=== PATIENT | female | born 1975 | race Caucasian/White ===

== ENCOUNTER 2018-02-14 08:36 | Emergency (ER) | payer BC, OTHER ==
[2018-02-14] MEDS ORDERED: ZOLP-1 PO (08:43)
[2018-02-14] MEDS ORDERED: DESO1TAB41 PO (08:43)
--- NOTE | 2018-02-14 08:46 | ER Report ---
History and Physical Time Seen By MD: 08:45 Hx. of Stated Complaint: PT PRESENTS WITH LOW BACK PAIN FOR ABOUT 30 MIN. EARLIER NOTED UTI SYMPTOMS HPI/ROS CHIEF COMPLAINT: right lower back pain HISTORY OF PRESENT ILLNESS: This is a 42 year old female. She had sudden onset of pain in the right lower back this morning, about 30 minutes ago. Was driving at the time. Severe pain that was not aggravated or relieved by anything. Has felt like maybe getting a urinary tract infection with some symptoms of urinary frequency, but no dysuria. No diarrhea or constipation, but felt like she needed to go more often this morning and during the night. Had vomiting this morning along with the pain. Regular periods; she is on control, last period about 2 weeks ago. Currently, still with some background discomfort, but no longer with the severe pain she did have. REVIEW OF SYSTEMS: Constitutional: As above. Cardiovascular: No chest pain. Respiratory: No shortness of breath. Gastrointestinal: No pain in the abdomen. Genitourinary: As above. Musculoskeletal: No other pain. Allergies: Coded Allergies: Sulfa (Sulfonamide Antibiotics) (Verified Allergy, Intermediate, RASH, 02/14) Home Meds Active Scripts Ondansetron (ZOFRAN ODT) 4 Mg Tab.rapdis, 4 MG PO Q6H Y for NAUSEA/VOMITING, # 20 TAB.SEGUNDO 0 Refills Prov:AVA POWERS MD 02/14/18 Amoxicillin (AMOXICILLIN) 500 Mg Capsule, 1 CAP PO Q8H, #15 CAPSULE 0 Refills Prov:AVA POWERS MD 02/14/18 Reported Medications Desogestrel-Ethinyl Estradiol (RECLIPSEN) 1 Each Tablet, 1 EACH PO 02/14/18 Zolpidem Tartrate (AMBIEN) 5 Mg Tablet, 1 TAB PO QHS, TAB 02/14/18 Reviewed Nurses Notes: Yes Constitutional Vital Sign - Last 24 Hours 02/14/18 02/14/18 02/14/18 02/14/18 08:40 08:45 09:00 09:06 Temp 97.5 Pulse 51 57 Resp 20 B/P (MAP) 111/79 111/79 (90) 109/80 (90) Pulse Ox 98 97 O2 Delivery Room Air 02/14/18 02/14/18 02/14/18 02/14/18 09:30 09:36 09:51 10:00 Pulse 58 B/P (MAP) 101/59 (73) 105/67 (80) 103/65 (78) Pulse Ox 95 02/14/18 02/14/18 02/14/18 02/14/18 10:06 10:15 10:30 10:37 Pulse 58 B/P (MAP) 103/70 (81) 112/67 (82) 107/63 (78) Intake and Output 02/14/18 02/14/18 02/15/18 14:59 22:59 06:59 Intake Total 900 ml Balance 900 ml Physical Exam General Appearance: The patient is alert. No acute distress. Eyes: Pupils are equal, round. No pallor, injection or icterus. ENT: Mucous membranes are moist Respiratory: Lungs are clear to auscultation. Cardiovascular: Regular rate and rhythm. No murmurs, gallops or rubs. Normal capillary refill. Gastrointestinal: Abdomen is soft and non tender. Nondistended. Normal active bowel sounds. No costovertebral angle tenderness with percussion. Neurological: Alert and oriented x3. Skin: Warm and dry. No rashes. Musculoskeletal: No pain with palpation of the back. No tenderness in palpation of the thoracic and lumbar spine. DIFFERENTIAL DIAGNOSIS: After history and physical exam, differential diagnosis was considered for flank pain including but not limited to musculoskeletal causes, kidney stone, pyelonephritis, reproductive related issues and intra- abdominal causes such as diverticulitis and appendicitis. Medical Decision Making Data Points Result Diagram: 02/14/18 0851 02/14/18 0851 Laboratory Hematology Test 02/14/18 08:39 02/14/18 08:51 Urine Color Yellow Urine Clarity Slightly-cloudy Urine pH 5.0 pH (4.8-9.5) Urine Specific [place] 1.020 Urine Protein Negative mg/dL (NEGATIVE) Urine Glucose (UA) Negative mg/dL (NEGATIVE) Urine Ketones Negative mg/dL (NEGATIVE) Urine Blood Large (NEGATIVE) Urine Nitrite Negative (NEGATIVE) Urine Bilirubin Negative (NEGATIVE) Urine Urobilinogen Negative mg/dL (0.2-1.9) Urine Leukocyte Esterase Negative (NEGATIVE) Urine RBC 206 /HPF (0-2/HPF) Urine WBC 1 /HPF (0-5/HPF) Urine Squamous Epithelial Cells Many /LPF (</=FEW) Urine Renal Epithelial Cells Few /LPF (NONE-FEW) Urine Bacteria Few /HPF (NONE-FEW) Urine Mucus Few /HPF (NONE-FEW) Red Blood Count 4.58 M/uL (4.17-5.56) Mean Corpuscular Volume 87.8 fL (80.0-96.0) Mean Corpuscular Hemoglobin 30.2 pg (26.0-33.0) Mean Corpuscular Hemoglobin Concent 34.4 g/dL (32.0-36.0) Red Cell Distribution Width 13.1 % (11.5-14.5) Mean Platelet Volume 9.2 fL (7.2-11.1) Neutrophils (%) (Auto) 59.5 % (39.4-72.5) Lymphocytes (%) (Auto) 25.6 % (17.6-49.6) Monocytes (%) (Auto) 8.2 % (4.1-12.4) Eosinophils (%) (Auto) 4.1 % (0.4-6.7) Basophils (%) (Auto) 2.6 % (0.3-1.4) Nucleated RBC Relative Count (auto) 0.1 /100WBC Neutrophils # (Auto) 3.7 K/uL (2.0-7.4) Lymphocytes # (Auto) 1.6 K/uL (1.3-3.6) Monocytes # (Auto) 0.5 K/uL (0.3-1.0) Eosinophils # (Auto) 0.3 K/uL (0.0-0.5) Basophils # (Auto) 0.2 K/uL (0.0-0.1) Nucleated RBC Absolute Count (auto) 0.01 K/uL Sodium Level 138 mmol/L (137-145) Potassium Level 3.4 mmol/L (3.5-5.0) Chloride Level 102 mmol/L (98-107) Carbon Dioxide Level 23 mmol/L (22-31) Blood Urea Nitrogen 15 mg/dl (7-18) Creatinine 1.00 mg/dl (0.52-1.04) Glomerular Filtration Rate Calc > 60.0 Random Glucose 119 mg/dl (75-110) Calcium Level 9.1 mg/dl (8.4-10.2) Total Bilirubin 0.8 mg/dl (0.2-1.3) Aspartate Amino Transf (AST/SGOT) 26 U/L (0-35) Alanine Aminotransferase (ALT/SGPT) 18 U/L (0-56) Alkaline Phosphatase 72 U/L (0-126) Total Protein 7.1 gm/dl (6.3-8.2) Albumin 4.0 g/dl (3.5-5.0) Amylase Level 71 U/L (0-110) Lipase 134 U/L (23-300) Human Chorionic Gonadotropin, Qual Negative (NEGATIVE) Chemistry Test 02/14/18 08:39 02/14/18 08:51 Urine Color Yellow Urine Clarity Slightly-cloudy Urine pH 5.0 pH (4.8-9.5) Urine Specific [place] 1.020 Urine Protein Negative mg/dL (NEGATIVE) Urine Glucose (UA) Negative mg/dL (NEGATIVE) Urine Ketones Negative mg/dL (NEGATIVE) Urine Blood Large (NEGATIVE) Urine Nitrite Negative (NEGATIVE) Urine Bilirubin Negative (NEGATIVE) Urine Urobilinogen Negative mg/dL (0.2-1.9) Urine Leukocyte Esterase Negative (NEGATIVE) Urine RBC 206 /HPF (0-2/HPF) Urine WBC 1 /HPF (0-5/HPF) Urine Squamous Epithelial Cells Many /LPF (</=FEW) Urine Renal Epithelial Cells Few /LPF (NONE-FEW) Urine Bacteria Few /HPF (NONE-FEW) Urine Mucus Few /HPF (NONE-FEW) White Blood Count 6.1 k/uL (4.5-11.0) Red Blood Count 4.58 M/uL (4.17-5.56) Hemoglobin 13.8 g/dL (12.0-16.0) Hematocrit 40.2 % (34.0-47.0) Mean Corpuscular Volume 87.8 fL (80.0-96.0) Mean Corpuscular Hemoglobin 30.2 pg (26.0-33.0) Mean Corpuscular Hemoglobin Concent 34.4 g/dL (32.0-36.0) Red Cell Distribution Width 13.1 % (11.5-14.5) Platelet Count 261 K/uL (150-450) Mean Platelet Volume 9.2 fL (7.2-11.1) Neutrophils (%) (Auto) 59.5 % (39.4-72.5) Lymphocytes (%) (Auto) 25.6 % (17.6-49.6) Monocytes (%) (Auto) 8.2 % (4.1-12.4) Eosinophils (%) (Auto) 4.1 % (0.4-6.7) Basophils (%) (Auto) 2.6 % (0.3-1.4) Nucleated RBC Relative Count (auto) 0.1 /100WBC Neutrophils # (Auto) 3.7 K/uL (2.0-7.4) Lymphocytes # (Auto) 1.6 K/uL (1.3-3.6) Monocytes # (Auto) 0.5 K/uL (0.3-1.0) Eosinophils # (Auto) 0.3 K/uL (0.0-0.5) Basophils # (Auto) 0.2 K/uL (0.0-0.1) Nucleated RBC Absolute Count (auto) 0.01 K/uL Glomerular Filtration Rate Calc > 60.0 Calcium Level 9.1 mg/dl (8.4-10.2) Total Bilirubin 0.8 mg/dl (0.2-1.3) Aspartate Amino Transf (AST/SGOT) 26 U/L (0-35) Alanine Aminotransferase (ALT/SGPT) 18 U/L (0-56) Alkaline Phosphatase 72 U/L (0-126) Total Protein 7.1 gm/dl (6.3-8.2) Albumin 4.0 g/dl (3.5-5.0) Amylase Level 71 U/L (0-110) Lipase 134 U/L (23-300) Human Chorionic Gonadotropin, Qual Negative (NEGATIVE) Urinalysis Test 02/14/18 08:39 Urine Color Yellow Urine Clarity Slightly-cloudy Urine pH 5.0 pH (4.8-9.5) Urine Specific [place] 1.020 Urine Protein Negative mg/dL (NEGATIVE) Urine Glucose (UA) Negative mg/dL (NEGATIVE) Urine Ketones Negative mg/dL (NEGATIVE) Urine Blood Large (NEGATIVE) Urine Nitrite Negative (NEGATIVE) Urine Bilirubin Negative (NEGATIVE) Urine Urobilinogen Negative mg/dL (0.2-1.9) Urine Leukocyte Esterase Negative (NEGATIVE) Urine RBC 206 /HPF (0-2/HPF) Urine WBC 1 /HPF (0-5/HPF) Urine Squamous Epithelial Cells Many /LPF (</=FEW) Urine Renal Epithelial Cells Few /LPF (NONE-FEW) Urine Bacteria Few /HPF (NONE-FEW) Urine Mucus Few /HPF (NONE-FEW) EKG/Imaging Imaging ABDOMEN/PELVIS WITH CONTRAST Provided history: right flank pain Additional pertinent history: none TECHNIQUE: Spiral scan was obtained from the lower chest through the symphysis with intravenous contrast Contrast dose: 75 mL Isovue 370 intravenously. Source images were reformatted in the coronal and sagittal planes. Additional series performed today: none One of the following dose optimization techniques was utilized in the performance of this exam: Automated exposure control; adjustment of the mA and/ or kV according to the patient's size; or use of an iterative reconstruction technique. Specific details can be referenced in the facility's radiology CT exam operational policy. COMPARISON STUDIES: No relevant priors FINDINGS: Lower chest: Negative Liver/biliary: Overall size normal. Shankar's lobe noted. Surface smooth. No focal hepatic lesion. No vascular thromboses. Gallbladder and bile ducts negative. Pancreas: Negative Spleen: Negative Adrenal glands: Negative Kidneys / ureters / bladder / genitourinary / retroperitoneum: There are 2 calcifications in the left pelvis coming close to the course of the left ureter just outside the ureter. No ureteral stones. Minimal free fluid noted in the posterior recesses of the pelvis, less than 50 mL. There is subtle asymmetric enhancement of the urothelium of the right renal pelvis and upper ureter. I see no clear evidence of pyelonephritis in the right kidney. Bowel / peritoneum / mesenteries: Negative. Normal appendix is demonstrated. Vessels: negative Lymph nodes: negative Body wall: negative Bones: Subcortical cyst right femoral head-neck junction cannot be evidence of mild chronic impingement. No significant marginal spurring. IMPRESSION: 1. Normal appendix is demonstrated. 2. Although I see no signs of pyelonephritis and no evidence of stone disease, the urothelium of the right kidney show subtle asymmetric hyperenhancement involving the renal pelvis and upper ureter. This could be indicative of mild inflammatory disease. Correlate clinically. Report Dictated By: Nikos Sloan MD at 02/14/2018 10:05 AM ED Course/Re-evaluation Clinical Indication for ER IV: Hydration, IV Access ED Course Initial evaluation as noted. No return of pain, but still feeling uncomfortable. Urinalysis with red blood cells. CBC, CMP, amylase, lipase and HCG negative. CT shows slight enhancement of the kidneys, but no sign of stone or or other acute pathology. Discussed this with the patient and her . Will do a urine culture and start treatment for presumptive UTI with Amoxicillin 500mg tid for 5 days. Follow-up with PCP as well as with Urology discussed. Decision to Disposition Date: February 14, 2018 Decision to Disposition Time: 10:32 Depart Departure Latest Vital Signs Vital Signs Date Time Temp Pulse Resp B/P (MAP) Pulse Ox O2 Delivery O2 Flow Rate FiO2 02/14/18 10:37 107/63 (78) 02/14/18 10:06 58 02/14/18 09:36 95 02/14/18 08:40 97.5 20 Room Air Impression: Primary Impression: Urinary tract infection Condition: Improved Disposition: HOME OR SELF-CARE New Scripts Ondansetron (ZOFRAN ODT) 4 Mg Tab.rapdis 4 MG PO Q6H Y for NAUSEA/VOMITING, #20 TAB.SEGUNDO 0 Refills Prov: AVA POWERS MD 02/14/18 Amoxicillin (AMOXICILLIN) 500 Mg Capsule 1 CAP PO Q8H, #15 CAPSULE 0 Refills Prov: AVA POWERS MD 02/14/18 Patient Instructions: Urinary Tract Infection in Women (ED) Additional Instructions: Increase fluid intake over the next few days. For pain, you can use Ibuprofen 200mg over the counter tablets, take 2-3 every 8 hours as needed for pain. You can also use over the counter Tylenol, 1-2 tablets every 6 hours as needed for pain. Start the antibiotic Amoxicillin 500mg three times a day for 5 days. If you have further nausea or vomiting, you can use Zofran 4mg, one every 6 hours as needed. Culture of the urine with take 48-72 hours to be completed. Follow-up with your primary care provider and consider follow-up with Urology. Problem Qualifiers Primary Impression: Urinary tract infection Urinary tract infection type: acute cystitis Hematuria presence: without hematuria Qualified Codes: N30.00 - Acute cystitis without hematuria AVA POWERS MD February 14, 2018 08:46
[2018-02-14] MEDS ORDERED: NS(*) 0.9% 1000 ML BAG 1,000 ML IV ONE (09:00)
[2018-02-14 09:09] LABS: PLATELET COUNT, AUTOMATED 261 K/uL (150-450)
[2018-02-14] MEDS ORDERED: IOPAMIDOL 76% 75 ML INFUS BTL 75 ML ONE (09:11)
--- NOTE | 2018-02-14 10:18 | RADIOLOGY IMAGING REPORT ---
FACILITY: [facility] PATIENT NAME: Maria R Cunningham : 1975 MR: [id number] V: [id number] EXAM DATE: ORDERING PHYSICIAN: AVA POWERS TECHNOLOGIST: Location: [facility] [place] Patient: Maria R Cunningham : 1975 Visit/Account:[id number] Date of Sevice: 02/14/2018 ABDOMEN/PELVIS WITH CONTRAST Provided history: right flank pain Additional pertinent history: none TECHNIQUE: Spiral scan was obtained from the lower chest through the symphysis with intravenous cont rast Contrast dose: 75 mL Isovue 370 intravenously. Source images were reformatted in the coronal and sagittal planes. Additional series performed today: none One of the following dose optimization techniques was utilized in the performance of this exam: Autom ated exposure control; adjustment of the mA and/or kV according to the patient's size; or use of an i terative reconstruction technique. Specific details can be referenced in the facility's radiology CT exam operational policy. COMPARISON STUDIES: No relevant priors FINDINGS: Lower chest: Negative Liver/biliary: Overall size normal. Shankar's lobe noted. Surface smooth. No focal hepatic lesion. No vascular thromboses. Gallbladder and bile ducts negative. Pancreas: Negative Spleen: Negative Adrenal glands: Negative Kidneys / ureters / bladder / genitourinary / retroperitoneum: There are 2 calcifications in the lef t pelvis coming close to the course of the left ureter just outside the ureter. No ureteral stones. Minimal free fluid noted in the posterior recesses of the pelvis, less than 50 mL. There is subtle asymmetric enhancement of the urothelium of the right renal pelvis and upper ureter. I see no clear evidence of pyelonephritis in the right kidney. Bowel / peritoneum / mesenteries: Negative. Normal appendix is demonstrated. Vessels: negative Lymph nodes: negative Body wall: negative Bones: Subcortical cyst right femoral head-neck junction cannot be evidence of mild chronic impingeme nt. No significant marginal spurring. IMPRESSION: 1. Normal appendix is demonstrated. 2. Although I see no signs of pyelonephritis and no evidence of stone disease, the urothelium of the right kidney show subtle asymmetric hyperenhancement involving the renal pelvis and upper ureter. T his could be indicative of mild inflammatory disease. Correlate clinically. Report Dictated By: Nikos Sloan MD at 02/14/2018 10:05 AM Report E-Signed By: Nikos Sloan MD at 02/14/2018 10:12 AM [id number]
[2018-02-14] MEDS ORDERED: ONDA4TAB PO (10:33)
[2018-02-14] MEDS ORDERED: AMOX-362 PO (10:33)
[2018-02-14 10:37] VITALS: BP 107/63
== END 2018-02-14 10:44 | disposition home or self-care (01) ==
LOC: ER 08:40
DX: N30.00 Acute cystitis without hematuria (principal)
CPT/HCPCS: 74177; 81001; 82150; 83690; 84703; 85025; 87088; 96360; 99284; J7030; Q9967; 82040; 82247; 82310; 82374; 82435; 82565; 82947; 84075; 84132; 84155; 84295; 84450; 84460; 84520